=== PATIENT | male | born 2000 | race African-American/Black ===

== ENCOUNTER 2022-12-04 08:21 | Emergency (ER) | payer MEDICAID ==
[~2022-12-04] VITALS: Ht 170.2 cm; Wt 191.8 kg
[2022-12-04 08:41] VITALS: BP 148/97; PULSE 107; RESP 18; TEMP 97.2; O2SAT 96
[2022-12-04] MEDS ORDERED: AZITHROMYCIN 250 MG TAB PO ONE (09:00)
[2022-12-04] MEDS ORDERED: cefTRIAXone SOD 1,000 MG VL IM ONE (09:00)
[2022-12-04] MEDS ORDERED: BACDST PO (09:03)
[2022-12-04] MEDS ORDERED: CLIN300C70 PO (09:03)
== END 2022-12-04 09:28 | disposition home or self-care (01) ==
LOC: ER 08:21
DX: L02.214 Cutaneous abscess of groin (principal); I10 Essential (primary) hypertension; Z20.2 Contact with and (suspected) exposure to infections with a predominantly sexual mode of transmission
CPT/HCPCS: 87491; 87591; 96372; 99283; J0696

== ENCOUNTER 2022-12-06 08:05 | Emergency (ER) | payer MEDICAID ==
[~2022-12-06] VITALS: Ht 170.2 cm; Wt 188.0 kg
[~2022-12-06 08:05] MED LIST: BACDST PO; CLIN300C70 PO
[2022-12-06 08:41] VITALS: BP 152/87; PULSE 102; RESP 20; TEMP 98.1; O2SAT 98
[2022-12-06] MEDS ORDERED: IBUP-1456 PO (08:46)
== END 2022-12-06 09:03 | disposition home or self-care (01) ==
LOC: ER 08:05
DX: L08.89 Other specified local infections of the skin and subcutaneous tissue (principal); E66.01 Morbid (severe) obesity due to excess calories; I10 Essential (primary) hypertension; Z68.44 Body mass index [BMI] 60.0-69.9, adult; Z79.1 Long term (current) use of non-steroidal anti-inflammatories (NSAID); Z79.899 Other long term (current) drug therapy

== ENCOUNTER 2022-12-17 08:19 | Emergency (ER) | payer MEDICAID ==
[~2022-12-17] VITALS: Ht 170.2 cm; Wt 197.2 kg
[~2022-12-17 08:19] MED LIST changes: +IBUP-1456 PO
[2022-12-17 08:25] VITALS: BP 136/93; PULSE 100; RESP 20; TEMP 97.2; O2SAT 97
== END 2022-12-17 09:44 | disposition home or self-care (01) ==
LOC: ER 08:19
DX: L02.211 Cutaneous abscess of abdominal wall (principal); I10 Essential (primary) hypertension; Z48.01 Encounter for change or removal of surgical wound dressing; Z79.1 Long term (current) use of non-steroidal anti-inflammatories (NSAID); Z79.899 Other long term (current) drug therapy

== ENCOUNTER 2024-02-10 09:10 | Emergency (ER) | payer MEDICAID ==
[~2024-02-10] VITALS: Ht 170.2 cm; Wt 126.6 kg
[~2024-02-10 09:10] MED LIST changes: +CLIN1CAP70 PO; -CLIN300C70 PO
[2024-02-10] MEDS ORDERED: CEPH500C PO (11:17)
[2024-02-10] MEDS ORDERED: IBUP1TAB5 PO (11:17)
[2024-02-10 11:38] VITALS: BP 140/84; PULSE 90; RESP 18; TEMP 98; O2SAT 96
== END 2024-02-10 11:55 | disposition home or self-care (01) ==
LOC: ER 09:10
DX: S61.512A Laceration without foreign body of left wrist, initial encounter (principal); I10 Essential (primary) hypertension; Z79.1 Long term (current) use of non-steroidal anti-inflammatories (NSAID); X58.XXXA Exposure to other specified factors, initial encounter; Y93.89 Activity, other specified; Y92.89 Other specified places as the place of occurrence of the external cause; Y99.8 Other external cause status
CPT/HCPCS: 12001